=== PATIENT | female | born 1940 | race Caucasian/White ===

== ENCOUNTER → 2018-03-18 | Outpatient (CLI) | payer MEDICARE, OTHER ==
--- NOTE | 2018-03-18 16:21 | MAM ---
EXAM DESCRIPTION: 3D Diagnostic, Bilateral: Digital Mammography CLINICAL HISTORY: 77 yearsFemaleLUMP palpable lump upper inner quadrant of the right breast. Previous bilateral breast reductions. No family history breast cancer. Childbirth. Postmenopausal. No HRT. COMPARISON: Targeted right breast ultrasound following this examination.. No prior reports available. TECHNIQUE: Bilateral CC LM MLO projection full-field images, 3-D tomosynthesis digital mammographic technique. CAD not utilized. FINDINGS: The breast parenchymal density pattern is: Scattered areas of fibroglandular density. No skin thickening or nipple retraction bilateral axillary lymph nodes. Large coarse calcifications in the retroareolar and anterior third of the right breast. Smaller coarse calcifications in the left breast. Bilateral microcalcifications. Vascular calcifications in the lateral mid third of the left breast. ULTRASOUND: Scanning of the 200 clock position of the right breast 7 cm from the nipple to the nipple. Homogeneous isoechoic subcutaneous mass which appears to be displacing the fatty breast tissue posteriorly under the skin surface. The mass is fusiform and avascular. Dimensions are 4.4 x 4.7 cm. No fluid compartments. No large calcifications. Adjacent breast shows no distinct solid mass or cyst. No large calcifications or parenchymal edema. No adjacent vascular tissues. Appearance consistent with a lipoma. IMPRESSION: BI-RADS CATEGORY: 2 - BENIGN FINDINGS. FOLLOW UP: Routine digital bilateral screening, one year interval from February 2018. The FINDINGS and the FOLLOW-UP plan were reviewed in person with the patient after the examination. Written communication explaining the IMPRESSION and FOLLOW-UP will be mailed to the patient and referring care provider. According to the [employer], yearly mammograms are recommended starting at age 40 and continuing as long as a woman is in good health. Any breast change noted on a breast self-exam should be reported promptly to the patient's healthcare provider. Breast MRI is recommended for women with an approximately 20-25% or greater lifetime risk of breast cancer, including women with a strong family history of breast or ovarian cancer and women who have been treated for Hodgkin's disease. A negative mammographic report should not delay tissue diagnosis in patients with significant clinical history or physical findings. Extremely dense breast tissue limits the sensitivity of digital mammography. Electronically signed by: Pankaj Bey MD 03/18/2018 4:20 PM CDT
--- NOTE | 2018-03-18 16:21 | US ---
EXAM DESCRIPTION: Breast,Right: Ultrasound CLINICAL HISTORY: 77 yearsFemaleLUMP IN RT BREAST. Upper inner Quadrant right breast. Prior bilateral breast reduction surgery. COMPARISON: Digital diagnostic 3-D tomosynthesis bilateral mammography on this visit. TECHNIQUE: Transcutaneous scanning of the right breast utilizing two-dimensional and Doppler modes. Scanning performed by the mica sizer only. FINDINGS: Scanning of the 200 clock position of the right breast 7 cm from the nipple to the nipple. Homogeneous isoechoic subcutaneous mass which appears to be displacing the fatty breast tissue posteriorly under the skin surface. The mass is fusiform and avascular. Dimensions are 4.4 x 4.7 cm. No fluid compartments. No large calcifications. Adjacent breast shows no distinct solid mass or cyst. No large calcifications or parenchymal edema. No adjacent vascular tissues. Appearance consistent with a lipoma. IMPRESSION: 1. Bi-Rads Category 2: Benign. 2. Please refer to bilateral diagnostic 3-D tomosynthesis mammography examination and report on this visit. The FINDINGS and the FOLLOW-UP plan were reviewed in person with the patient after the examination. Written communication explaining the IMPRESSION and FOLLOW-UP will be mailed to the patient and referring care provider. Electronically signed by: Pankaj Bey MD 03/18/2018 4:19 PM CDT
== END ==
LOC: MAMMO 10:06
PROVIDERS: ATTEND Nurse Practitioner Family
DX: N63.0 Unspecified lump in unspecified breast (principal)
CPT/HCPCS: 76641; 77066; G0279

== ENCOUNTER → 2018-07-28 | Outpatient (CLI) | payer OTHER ==
--- NOTE | 2018-07-28 12:19 | CT ---
CLINICAL HISTORY: 77 years Female, SINUSITIS COMPARISON: Patient also had fluoroscopic guided barium swallow and esophagram on this visit. TECHNIQUE: Spiral, axial 2.5 mm scans through the paranasal sinuses and maxillofacial bones without contrast. Coronal and sagittal 2.0 mm reconstructions. Axial, helical 2.5 mm reconstruction using bone algorithm. Total Exam DLP: 293.27 mGy-cm. This exam was performed according to our departmental CT dose-optimization program which includes automated exposure control, adjustment of the mA and/or kV according to patient size and/or use of iterative reconstruction technique; to reduce radiation dose to as low as reasonably achievable (ALARA). FINDINGS: Opacification of most of the left maxillary antrum with minimal air. Irregularity of the soft tissue and calcification in the base of the antrum. Left ostiomeatal unit is obstructed. No viable dental root abnormalities abutting the floor of the sinus. Mucoperiosteal thickening in the base of the right maxillary antrum. Ostiomeatal unit is intact. Minimal radiolucency around the anterior inferior root of the right upper second molar. Minimal mucoperiosteal thickening in the anterior ethmoid air cells. Other air cells are well aerated. Sphenoid nasal ostia are patent. Frontal sinuses are decreased in size. Nasal passageways are well aerated with minimal thecal sac turbinate hypertrophy. No significant septal deviation. Minimal opacification of some of the inferior air cells in the left mastoid group. No gross abnormalities of the internal auditory ossicles or other middle/inner ear structures. Minimal arthrosis in the left TMJ. IMPRESSION: Almost complete opacification of the left maxillary antrum. Calcification in an normal density toward the base is suggestive of a fungal infection. Complete obstruction of the left ostiomeatal unit. No other significant findings in the maxillofacial bones or paranasal sinuses. Electronically signed by: Pankaj Bey MD 07/28/2018 12:17 PM CDT
--- NOTE | 2018-07-29 08:38 | RAD ---
EXAM DESCRIPTION: Barium Swallow: Rad-Fluoroscopy. CLINICAL HISTORY: DYSPHASIA COMPARISON: None TECHNIQUE: The patient swallowed barium pill with water. The patient swallowed gas-producing granules, water, and heavy density barium under fluoroscopic visualization. The images were obtained with the patient upright and horizontal.. Patient drank medium density barium through a straw in the semi-prone position. 106 fluoroscopic cine loop images. 10 static fluoroscopic images. Total fluoroscopy time was 2.9 minutes. DAP: less than 14 Gy-cm2.. FINDINGS: Patient swallowed barium pill with water and the pill passed without difficulty or delay from the oral cavity into the stomach. On the oral pharyngeal phase, there is premature spillage on the right into the vallecula. No aspiration or coughing. There was some difficulty in imaging the upper esophagus due to patient nausea and near vomiting while swallowing. Primary peristaltic wave was incomplete with secondary and tertiary contractions in the distal third of the esophagus. The esophagus demonstrated minimal irregularity of the mucosa. Sliding mild to moderate hiatal hernia, with thickening of gastric folds in the hernia. No obstruction. Reflux above the level of the aortic arch. The stomach was well distended with contrast material and thickened folds in the fundus. No other large intrinsic lesions or mass effect. Duodenum well distended with contrast material with no large mucosal lesions or mass effect. IMPRESSION: 1. Normal transit time without obstruction of barium pill from the oral cavity to the stomach. 2. In the oral pharyngeal phase there is minimal premature spillage into the right vallecula. No aspiration. 3. No mucosal lesions or mass effect in the esophagus. Incomplete primary peristaltic wave with distal secondary and tertiary contractions. 4. Mild to moderate sliding hiatal hernia. Significant gastroesophageal reflux when horizontal, above the level of the aortic knob. 5. Thickened folds in the fundus of the stomach in the hernia could indicate gastritis. Consider endoscopic evaluation and tissue sampling if indicated 6. Gastroduodenal transit, mucosa unremarkable with no mass effect. Electronically signed by: Pankaj Bey MD 07/29/2018 8:37 AM CDT
== END ==
LOC: CT 08:58
PROVIDERS: ATTEND Otolaryngology
DX: R47.02 Dysphasia (principal); J01.90 Acute sinusitis, unspecified

== ENCOUNTER → 2020-11-25 | Outpatient (CLI) | payer OTHER | LOC: LAB.O 17:38 | PROVIDERS: ATTEND Nurse Practitioner Family | DX: R53.83 Other fatigue (principal); K52.9 Noninfective gastroenteritis and colitis, unspecified ==